=== PATIENT | male | born 1980 | race African-American/Black ===

== ENCOUNTER 2023-05-06 09:06 | Emergency (ER) | payer SELFPAY ==
[2023-05-06 09:20] VITALS: TEMP 98.9; BMI 26.7
[2023-05-06 10:06] LABS: EOS % 1.2 % (0-4.5); HEMATOCRIT 42.6 % (35.4-49); HEMOGLOBIN 14.2 GM/dL (11.7-16.9); LYMPH % 17.1 % (8-40); MCH 30.4 pg (25.7-33.7); MCHC 33.4 g/dl (32.0-35.9); MEAN CELL VOLUME 91.1 fl (80-96); MEAN PLT VOLUME 8.3 fl (7.5-11.1); MONO % 12.9 % (3.8-10.2); NEUT % 67.8 % (42.8-82.8); PLATELET COUNT 80 10^3/uL (134-434); RBC 4.67 M/mm3 (4.00-5.60); RDW 13.3 % (11.9-15.9); WHITE BLOOD COUNT 2.6 K/mm3 (4.0-10.0)
[2023-05-06 10:13] LABS: INR 1.14 (0.83-1.09); PROTHROMBIN TIME (PATIENT) 13.2 SEC (9.7-13.0)
[2023-05-06] MEDS: SODIUM CHLORIDE 0.9% 500 ML INFUS.BAG IV ONE (10:15)
[2023-05-06 10:16] LABS: ACTIVATED PTT 29.3 SECONDS (25.2-36.5)
[2023-05-06 10:22] LABS: POTASSIUM 3.4 mmol/L (3.5-5.1)
[2023-05-06 10:24] LABS: CALCIUM 9.1 mg/dL (8.5-10.1)
[2023-05-06 10:25] LABS: ALBUMIN 3.9 g/dl (3.4-5.0); BLOOD UREA NITROGEN 8.2 mg/dL (7-18)
[2023-05-06 10:28] LABS: CREATININE 0.9 mg/dL (0.55-1.3)
[2023-05-06 10:29] LABS: TOT PROT 8.3 g/dl (6.4-8.2)
[2023-05-06 10:30] LABS: BILIRUBIN,TOTAL 1.2 mg/dL (0.2-1)
[2023-05-06] MEDS ORDERED: MAGNESIUM SULFATE IN WATER 2 GM/50 ML IVPB IVPB ONE (10:45)
[2023-05-06] MEDS: MAGNESIUM SULFATE IN WATER 2 GM/50 ML IVPB IVPB ONE (10:52)
[2023-05-06] MEDS ORDERED: chlordiazePOXIDE HCL 25 MG CAPSULE ONE (11:14)
[2023-05-06] MEDS: chlordiazePOXIDE HCL 25 MG CAPSULE PO ONE (11:18)
[2023-05-06 14:19] LABS: ANION GAP 9 mmol/L (4-13); BLOOD UREA NITROGEN 5.2 mg/dL (7-18); CALCIUM 5.5 mg/dL (8.5-10.1); CHLORIDE 119 mmol/L (98-107); CO2 19 mmol/L (21-32); CREATININE 0.3 mg/dL (0.55-1.3); GLUCOSE,RANDOM 67 mg/dL (74-106); MAGNESIUM 1.1 mg/dL (1.8-2.4); POTASSIUM 2.4 mmol/L (3.5-5.1); SODIUM 147 mmol/L (136-145)
[2023-05-06 14:34] LABS: EPI CELLS 13 /uL (0-25.1); HYALINE CASTS 3 /uL (0-3.1); PH,URINE 5.5 (5.0-8.0); URINE APPEARANCE CLEAR; URINE BACTERIA 83 /uL (0-1359); URINE BILIRUBIN NEGATIVE (NEGATIVE); URINE COLOR ORANGE; URINE GLUCOSE (UA) NEGATIVE (NEGATIVE); URINE KETONE 2+ (NEGATIVE); URINE LEUK ESTERASE 1+ (NEGATIVE); URINE NITRITE NEGATIVE (NEGATIVE); URINE PROTEIN 1+ (NEGATIVE); URINE RBC 11 /uL (0-23.9); URINE WBC 95 /uL (0-25.8)
[2023-05-06 15:46] LABS: POTASSIUM 3.5 mmol/L (3.5-5.1)
[2023-05-06 15:48] LABS: BLOOD UREA NITROGEN 8.2 mg/dL (7-18); MAGNESIUM 1.7 mg/dL (1.8-2.4)
[2023-05-06 15:51] LABS: CREATININE 0.8 mg/dL (0.55-1.3)
[2023-05-06 15:54] LABS: CALCIUM 8.8 mg/dL (8.5-10.1)
[2023-05-06] MEDS ORDERED: CEFTRIAXONE 1 GM/50 ML BAG ONE (16:25)
[2023-05-06] MEDS: CEFTRIAXONE 1,000 MG in DEXTROSE 5%-WATER - 50 ML IVPB ONE (16:32)
[2023-05-06 17:35] VITALS: BP 128/89; PULSE 88; RESP 16
== END 2023-05-06 19:15 | disposition home or self-care (01) ==
LOC: JER 09:06
PROC: 3E03329 Introduction of Other Anti-infective into Peripheral Vein, Percutaneous Approach (ICD-10-PCS; principal; 2023-05-06)
PROC: 3E033GC Introduction of Other Therapeutic Substance into Peripheral Vein, Percutaneous Approach (ICD-10-PCS; 2023-05-06)
DX: R56.9 Unspecified convulsions (principal); N39.0 Urinary tract infection, site not specified; F10.90 Alcohol use, unspecified, uncomplicated; R42 Dizziness and giddiness; M25.30 Other instability, unspecified joint; E83.42 Hypomagnesemia; Z20.822 Contact with and (suspected) exposure to COVID-19
CPT/HCPCS: 0241U-QW; 36415; 70450-TC; 71045-TC-FY; 80048; 80053; 81003; 83735; 84484; 85025; 85610; 85730; 86850; 86900; 86901; 87086; 93005; 93010; 99285-25